=== PATIENT | male | born 1970 | race Caucasian/White ===

== ENCOUNTER 2019-02-03 08:41 | Emergency (ER) | payer BC, SELFPAY ==
[2019-02-03] MEDS ORDERED: ASPIRIN EC 81 MG TAB PO ONE (09:20)
[2019-02-03] MEDS ORDERED: MAGNE/ALUM HYDROXD 30 ML UCUP ONE (09:20)
[2019-02-03] MEDS ORDERED: LIDOCAINE VISCOUS 2% SOLN 15 ML UDC ONE (09:20)
[2019-02-03 09:31] LABS: Absolute Lymphocytes (CBC) 0.7 K/uL (0.7-4.9); Absolute Monocytes 1.2 K/uL (0.1-1.3); Absolute Neutrophil 7.1 K/uL (1.8-8.0); Basophils % 0.2 % (0-1.3); Hematocrit 46.3 % (39.6-49.0); Lymphocytes % 7.6 % (15.3-44.8); MPV 7.8 fL (7.6-11.3); Monocytes % 13.6 % (3.3-12.3); RBC Red Blood Cell Count 5.42 M/uL (4.33-5.43)
[2019-02-03 09:42] LABS: Protime INR 1.04
[2019-02-03 09:53] LABS: ALT/SGPT 22 U/L (12-78); AST/SGOT 12 U/L (15-37); Albumin 3.9 g/dL (3.4-5.0); Alkaline Phosphatase 94 U/L (45-117); BUN Blood Urea Nitrogen 19 mg/dL (7-18); Bicarbonate 29 mmol/L (21-32); Bilirubin Direct 0.3 mg/dL (0-0.2); Bilirubin Total 1.1 mg/dL (0.2-1.0); Glucose Level 115 mg/dL (74-106); Magnesium 1.9 mg/dL (1.8-2.4); NT PRO-BNP 48 pg/mL (<125); Potassium 3.7 mmol/L (3.5-5.1); Protein, Total 7.3 g/dL (6.4-8.2); Sodium Level 134 mmol/L (136-145); Troponin (Emerg Dept Use Only) < 0.02 ng/mL (0.0-0.045)
--- NOTE | 2019-02-03 11:31 | RAD REPORT ---
EXAM DESCRIPTION: RAD - Chest Single View - 02/03/2019 9:56 am CLINICAL HISTORY: PAIN Chest pain. COMPARISON: No comparisons FINDINGS: Portable technique limits examination quality. The lungs are grossly clear. The heart is normal in size. No displaced fractures. IMPRESSION: No acute intrathoracic process suspected.
--- NOTE | 2019-02-03 12:29 | RAD REPORT ---
EXAM DESCRIPTION: CT - Abdomen Pelvis W Contrast - 02/03/2019 12:09 pm CLINICAL HISTORY: Abdominal pain, diarrhea and nausea COMPARISON: None. TECHNIQUE: Biphasic, helical CT imaging of the abdomen and pelvis was performed following 100 ml non -ionic IV contrast. Oral contrast was given. All CT scans are performed using dose optimization technique as appropriate and may include automated exposure control or mA/KV adjustment according to patient size. FINDINGS: No suspicious findings in the lung bases. The liver, spleen, and pancreas show no suspicious findings. Liver is borderline fatty infiltrated. N o gallbladder or biliary tree abnormality. Renal function is symmetric and without evidence for delay. There is minimal dilatation of the right collecting system relative to the left. The patient has a 10 millimeter oval calcification at the rig ht UVJ, possibly within a ureterocele. There are no comparison studies available. No pyelonephritis o r acute parenchymal process. Urinary bladder is contracted. Prostate gland and seminal vesicles withi n normal limits. No adrenal abnormalities. No gastric dilatation or gastric wall thickening. Oral contrast has reached the cecum. No appendiciti s findings. Multiple distended small bowel loops are present with intermittent areas of small bowel w all thickening. Spears of the left side colon are mildly prominent without dilatation or mass. No free air, free fluid or inflammatory stranding. No hernia, mass or bulky lymphadenopathy. Mult iple small mesenteric lymph nodes are present. No suspicious bony findings. IMPRESSION: Prominent small bowel infectious or inflammatory enteritis pattern with multiple small m esenteric lymph nodes. No small bowel obstruction. Oral CT contrast has reached the cecum. Minimal prominence of the left-side colon spears without focal mass. This may be a concurrent colitis. Patient has a 10 millimeter calcification at the right UVJ possibly within a ureterocele. There is mi ld dilatation of the right collecting system but no delayed or asymmetric function.
[2019-02-03] MEDS ORDERED: PROMETHAZINE 25 MG/ML VIAL ONE (12:41)
[2019-02-03] MEDS ORDERED: FENTANYL CITR 100 MCG/2 ML ONE (12:42)
[2019-02-03] MEDS ORDERED: levoFLOXacin 500 MG TAB ONE (13:46)
[2019-02-03] MEDS ORDERED: ONDANSETRON 4 MG (ODT) TAB ONE (13:46)
--- NOTE | 2019-02-03 14:14 | EDPHYS ---
Physician Documentation [facility] Name: Sudhakar Johnston Age: 48 yrs Sex: Male : 1970 Arrival Date: 02/03/2019 Time: 08:43 Bed 15 Private MD: ED Physician Edgar Steve HPI: 02/03 09:11 This 48 yrs old Male presents to ER via Unassigned with complaints of snw Epigastric Pain, Nausea. 09:11 The patient presents with abdominal pain in the epigastric area, in the upper abdomen. snw Onset: The symptoms/episode began/occurred suddenly, 4 day(s) ago, and became persistent. Historical: - Allergies: 08:49 Keflex; rb1 08:49 PENICILLINS; rb1 08:49 Sulfa (Sulfonamide Antibiotics); rb1 - Home Meds: 08:49 amlodipine 10 mg tab 1 tab once daily [Active]; metoprolol succinate 50 mg oral Tb24 1 rb1 tab 2 times a day [Active]; - PMHx: 08:49 Hypertension; rb1 - PSHx: 08:49 None; rb1 - Immunization history:: Adult Immunizations up to date. - Social history:: Smoking status: Patient uses tobacco products, denies chronic smoking, but will smoke occasionally, cigars. - Ebola Screening: : Patient negative for fever greater than or equal to 101.5 degrees Fahrenheit, and additional compatible Ebola Virus Disease symptoms. ROS: 09:06 Constitutional: Negative for fever, chills, and weight loss, Eyes: Negative for injury, snw pain, redness, and discharge, ENT: Negative for injury, pain, and discharge, Neck: Negative for injury, pain, and swelling, Respiratory: Negative for shortness of breath, cough, wheezing, and pleuritic chest pain, Back: Negative for injury and pain, : Negative for injury, bleeding, discharge, and swelling, MS/Extremity: Negative for injury and deformity, Skin: Negative for injury, rash, and discoloration, Neuro: Negative for headache, weakness, numbness, tingling, and seizure, Psych: Negative for depression, anxiety, suicide ideation, homicidal ideation, and hallucinations. 09:06 Cardiovascular: Positive for chest pain, of the xyphoid area. 09:06 Abdomen/GI: Positive for abdominal pain, nausea, diarrhea. Exam: 09:06 Constitutional: This is a well developed, well nourished patient who is awake, alert, snw and in no acute distress. Head/Face: Normocephalic, atraumatic. Eyes: Pupils equal round and reactive to light, extra-ocular motions intact. Lids and lashes normal. Conjunctiva and sclera are non-icteric and not injected. Cornea within normal limits. Periorbital areas with no swelling, redness, or edema. ENT: Nares patent. No nasal discharge, no septal abnormalities noted. Tympanic membranes are normal and external auditory canals are clear. Oropharynx with no redness, swelling, or masses, exudates, or evidence of obstruction, uvula midline. Mucous membranes moist. Neck: Trachea midline, no thyromegaly or masses palpated, and no cervical lymphadenopathy. Supple, full range of motion without nuchal rigidity, or vertebral point tenderness. No Meningismus. Chest/axilla: Normal chest wall appearance and motion. Nontender with no deformity. No lesions are appreciated. Cardiovascular: Regular rate and rhythm with a normal S1 and S2. No gallops, murmurs, or rubs. Normal PMI, no JVD. No pulse deficits. Respiratory: Lungs have equal breath sounds bilaterally, clear to auscultation and percussion. No rales, rhonchi or wheezes noted. No increased work of breathing, no retractions or nasal flaring. Abdomen/GI: Soft, non-tender, with normal bowel sounds. No distension or tympany. No guarding or rebound. No evidence of tenderness throughout. Back: No spinal tenderness. No costovertebral tenderness. Full range of motion. Skin: Warm, dry with normal turgor. Normal color with no rashes, no lesions, and no evidence of cellulitis. MS/ Extremity: Pulses equal, no cyanosis. Neurovascular intact. Full, normal range of motion. Neuro: Awake and alert, GCS 15, oriented to person, place, time, and situation. Cranial nerves II-XII grossly intact. Motor strength 5/5 in all extremities. Sensory grossly intact. Cerebellar exam normal. Normal gait. Psych: Awake, alert, with orientation to person, place and time. Behavior, mood, and affect are within normal limits. 09:15 ECG was reviewed by the Attending Physician. snw Vital Signs: 08:49 BP 136 / 94; Pulse 85; Resp 19; Temp 98.5(O); Pulse Ox 99% on R/A; Weight 81.19 kg (R); rb1 Height 5 ft. 9 in. (175.26 cm) (R); Pain 4/10; 09:49 BP 124 / 87; Pulse 86; Resp 18; Pulse Ox 99% on R/A; rb1 10:37 BP 140 / 93; Pulse 84; Resp 20; Pulse Ox 100% on R/A; Pain 4/10; rb1 11:30 BP 125 / 83; Pulse 83; Resp 16; Pulse Ox 97% on R/A; Pain 3/10; rb1 12:30 BP 136 / 86; Pulse 96; Resp 14; Pulse Ox 98% on R/A; rb1 13:30 BP 128 / 81; Pulse 91; Resp 13; Pulse Ox 98% ; rb1 14:30 BP 132 / 84; Pulse 88; Resp 16; Pulse Ox 100% on R/A; rb1 08:49 Body Mass Index 26.43 (81.19 kg, 175.26 cm) rb1 MDM: 08:56 Patient medically screened. jennifer 14:15 Data reviewed: vital signs, nurses notes. Data interpreted: Pulse oximetry: on room air snw is 98 %. Interpretation: normal. Counseling: I had a detailed discussion with the patient and/or guardian regarding: the historical points, exam findings, and any diagnostic results supporting the discharge/admit diagnosis, the presence of at least one elevated blood pressure reading (>120/80) during this emergency department visit, lab results, radiology results, the need for outpatient follow up, to return to the emergency department if symptoms worsen or persist or if there are any questions or concerns that arise at home. Special discussion: Based on the patient's Hx, exam, and Dx evaluation, there is no indication for emergent surgery or inpatient Tx. It is understood by the patient/guardian that if the Sx's persist or worsen they need to return immediately for re-evaluation. I have referred the patient to see his PCP for further evaluation of high blood pressure. Based on the history and exam findings, there is no indication for further emergent testing or inpatient evaluation. I discussed with the patient/guardian the need to see the skip pit worker for further evaluation of the symptoms. I discussed with the patient/guardian the need to see the primary care provider for further evaluation of the symptoms. 02/03 09:02 Order name: Basic Metabolic Panel snw 02/03 09:02 Order name: CBC with Diff; Complete Time: 09:43 snw 02/03 09:02 Order name: LFT's; Complete Time: 09:53 snw 02/03 09:02 Order name: Magnesium; Complete Time: 09:53 snw 02/03 09:02 Order name: NT PRO-BNP; Complete Time: 09:53 snw 02/03 09:02 Order name: PT-INR; Complete Time: 09:48 snw 02/03 09:02 Order name: Troponin (emerg Dept Use Only); Complete Time: 09:53 snw 02/03 09:02 Order name: XRAY Chest (1 view); Complete Time: 11:37 snw 02/03 09:02 Order name: Basic Metabolic Panel; Complete Time: 09:53 EDMS 02/03 09:54 Order name: CT Abd/Pelvis - W/Contrast; Complete Time: 12:47 snw 02/03 11:48 Order name: Troponin (emerg Dept Use Only): at 1215; Complete Time: 13:23 snw 02/03 09:02 Order name: EKG; Complete Time: 09:03 snw 02/03 09:02 Order name: Cardiac monitoring; Complete Time: 09:26 snw 02/03 09:02 Order name: EKG - Nurse/Tech; Complete Time: 09:27 snw 02/03 09:02 Order name: IV Saline Lock; Complete Time: 09:26 snw 02/03 09:02 Order name: Labs collected and sent; Complete Time: 09:26 snw 02/03 09:02 Order name: O2 Per Protocol; Complete Time: 09:26 snw 02/03 09:02 Order name: O2 Sat Monitoring; Complete Time: 09:26 snw 02/03 11:48 Order name: EKG - Nurse/Tech: at 12:15; Complete Time: 12:44 snw Administered Medications: 09:05 Drug: Aspirin 81 mg Route: PO; rb1 09:35 Follow up: Response: No adverse reaction rb1 09:05 Drug: GI Cocktail without - (Maalox Suspension 30 ml, Lidocaine Liquid 2 % 15 rb1 ml) Route: PO; 09:35 Follow up: Response: No adverse reaction; No change in condition rb1 12:42 Not Given (Patient Refused): fentaNYL (PF) 25 mcg IVP once rb1 12:42 Not Given (Patient Refused): Phenergan 6.25 mg IVP once rb1 13:39 Drug: LevaQUIN 500 mg Route: PO; rb1 13:39 Drug: Zofran 4 mg Route: PO; rb1 Disposition: 02/04 08:22 Co-signature as Attending Physician, Edgar Steve MD I agree with the assessment and jennifer plan of care. Disposition: 02/03/19 14:13 Discharged to Home. Impression: Unspecified colitis, Fatty (change of) liver, not elsewhere classified. - Condition is Stable. - Discharge Instructions: Colitis, Nonalcoholic Fatty Liver Disease Diet. - Prescriptions for Levaquin 500 mg Oral Tablet - take 1 tablet by ORAL route once daily for 7 days; 7 tablet. Zofran 4 mg Oral Tablet - take 1 tablet by ORAL route every 6 hours As needed; 20 tablet. - Work release form, Medication Reconciliation Form, Thank You Letter, Antibiotic Education, Prescription Opioid Use form. - Follow up: Private Physician; When: 2 - 3 days; Reason: Recheck today's complaints, Continuance of care, Re-evaluation by your physician. Follow up: Emergency Department; When: As needed; Reason: Worsening of condition. Signatures: Dispatcher [employer] Edgar Alamo MD MD cha Therrien, Shelly, SOUND ENGINEER-C SOUND ENGINEER-Csnw Navin Michaels, CUPOLA HOIST OPERATOR CUPOLA HOIST OPERATOR Zulema Ward, RN RN rb1 Corrections: (The following items were deleted from the chart) 02/03 14:45 14:13 02/03/2019 14:13 Discharged to Home. Impression: Unspecified colitis; Fatty em (change of) liver, not elsewhere classified. Condition is Stable. Forms are Medication Reconciliation Form, Thank You Letter, Antibiotic Education, Prescription Opioid Use. Follow up: Private Physician; When: 2 - 3 days; Reason: Recheck today's complaints, Continuance of care, Re-evaluation by your physician. Follow up: Emergency Department; When: As needed; Reason: Worsening of condition. snw
--- NOTE | 2019-02-03 14:14 | ER ---
Nurse's Notes [facility] Name: Sudhakar Johnston Age: 48 yrs Sex: Male : 1970 Arrival Date: 02/03/2019 Time: 08:43 Bed 15 Private MD: Diagnosis: Unspecified colitis;Fatty (change of) liver, not elsewhere classified Presentation: 02/03 08:49 Presenting complaint: Patient states: I have been feeling bloated and indigestion since rb1 . I have had diarrhea and nausea, but have not actually vomited. Transition of care: patient was not received from another setting of care. Onset of symptoms was January 31, 2019. Risk Assessment: Do you want to hurt yourself or someone else? Patient reports no desire to harm self or others. Initial Sepsis Screen: Does the patient meet any 2 criteria? No. Patient's initial sepsis screen is negative. Does the patient have a suspected source of infection? No. Patient's initial sepsis screen is negative. Care prior to arrival: None. 08:49 Method Of Arrival: Ambulatory rb1 08:49 Acuity: OG 3 rb1 Triage Assessment: 08:49 General: Appears in no apparent distress. comfortable, Behavior is calm, cooperative. rb1 Pain: Complains of pain in epigastric area Pain currently is 4 out of 10 on a pain scale. Pain began . Neuro: Level of Consciousness is awake, alert, obeys commands, Oriented to person, place, time, situation. Cardiovascular: Capillary refill < 3 seconds is brisk in bilateral fingers. Respiratory: Airway is patent Respiratory effort is even, unlabored, Respiratory pattern is regular, symmetrical. GI: Reports diarrhea, nausea. : No signs and/or symptoms were reported regarding the genitourinary system. Derm: Skin is pink, warm \T\ dry. Musculoskeletal: Range of motion: intact in all extremities. Historical: - Allergies: 08:49 Keflex; rb1 08:49 PENICILLINS; rb1 08:49 Sulfa (Sulfonamide Antibiotics); rb1 - Home Meds: 08:49 amlodipine 10 mg tab 1 tab once daily [Active]; metoprolol succinate 50 mg oral Tb24 1 rb1 tab 2 times a day [Active]; - PMHx: 08:49 Hypertension; rb1 - PSHx: 08:49 None; rb1 - Immunization history:: Adult Immunizations up to date. - Social history:: Smoking status: Patient uses tobacco products, denies chronic smoking, but will smoke occasionally, cigars. - Ebola Screening: : Patient negative for fever greater than or equal to 101.5 degrees Fahrenheit, and additional compatible Ebola Virus Disease symptoms. Screenin:49 Abuse screen: Denies threats or abuse. Nutritional screening: No deficits noted. rb1 Tuberculosis screening: No symptoms or risk factors identified. Fall Risk None identified. Assessment: 08:49 General: See triage assessment. rb1 09:49 Reassessment: Patient appears in no apparent distress at this time. Patient and/or rb1 family updated on plan of care and expected duration. Pain level reassessed. Patient is alert, oriented x 3, equal unlabored respirations, skin warm/dry/pink. 10:28 Reassessment: Spoke to Helene in [place] and informed her that the pt. finished his contrast. rb1 10:49 Reassessment: Patient appears in no apparent distress at this time. No changes from rb1 previously documented assessment. 11:44 Reassessment: Patient appears in no apparent distress at this time. Patient and/or rb1 family updated on plan of care and expected duration. Pain level reassessed. Patient is alert, oriented x 3, equal unlabored respirations, skin warm/dry/pink. 12:42 Reassessment: Pt. refused the Fentanyl and Phenergan; provider notified. rb1 12:42 Reassessment: Patient appears in no apparent distress at this time. Patient and/or rb1 family updated on plan of care and expected duration. Pain level reassessed. Patient is alert, oriented x 3, equal unlabored respirations, skin warm/dry/pink. 13:40 Reassessment: Patient appears in no apparent distress at this time. No changes from rb1 previously documented assessment. Family at bedside. 14:30 Reassessment: Patient appears in no apparent distress at this time. Patient and/or rb1 family updated on plan of care and expected duration. Pain level reassessed. Patient is alert, oriented x 3, equal unlabored respirations, skin warm/dry/pink. Vital Signs: 08:49 BP 136 / 94; Pulse 85; Resp 19; Temp 98.5(O); Pulse Ox 99% on R/A; Weight 81.19 kg (R); rb1 Height 5 ft. 9 in. (175.26 cm) (R); Pain 4/10; 09:49 BP 124 / 87; Pulse 86; Resp 18; Pulse Ox 99% on R/A; rb1 10:37 BP 140 / 93; Pulse 84; Resp 20; Pulse Ox 100% on R/A; Pain 4/10; rb1 11:30 BP 125 / 83; Pulse 83; Resp 16; Pulse Ox 97% on R/A; Pain 3/10; rb1 12:30 BP 136 / 86; Pulse 96; Resp 14; Pulse Ox 98% on R/A; rb1 13:30 BP 128 / 81; Pulse 91; Resp 13; Pulse Ox 98% ; rb1 14:30 BP 132 / 84; Pulse 88; Resp 16; Pulse Ox 100% on R/A; rb1 08:49 Body Mass Index 26.43 (81.19 kg, 175.26 cm) rb1 ED Course: 08:43 Patient arrived in ED. as 08:49 Zulema James, RN is Primary Nurse. rb1 08:49 Arm band placed on left wrist. rb1 08:49 Patient has correct armband on for positive identification. Bed in low position. Call rb1 light in reach. Side rails up X 1. Placed in gown. Pulse ox on. NIBP on. 08:53 Macey Ridley [facility]-C [facility]. la1 08:53 Edgar Steve MD is Attending Physician. la1 09:18 Inserted saline lock: 22 gauge in right antecubital area, using aseptic technique. rb1 Blood collected. 09:46 Triage completed. rb1 09:56 XRAY Chest (1 view) In Process Unspecified. EDMS 12:08 CT completed. Patient tolerated procedure well. Patient moved back from CT. mw3 12:10 CT Abd/Pelvis - W/Contrast In Process Unspecified. EDMS 12:44 EKG done, by ED staff, reviewed by Macey GARCIA. jp3 14:45 No provider procedures requiring assistance completed. IV discontinued, intact, rb1 bleeding controlled, No redness/swelling at site. Pressure dressing applied. Administered Medications: 09:05 Drug: Aspirin 81 mg Route: PO; rb1 09:35 Follow up: Response: No adverse reaction rb1 09:05 Drug: GI Cocktail without - (Maalox Suspension 30 ml, Lidocaine Liquid 2 % 15 rb1 ml) Route: PO; 09:35 Follow up: Response: No adverse reaction; No change in condition rb1 12:42 Not Given (Patient Refused): fentaNYL (PF) 25 mcg IVP once rb1 12:42 Not Given (Patient Refused): Phenergan 6.25 mg IVP once rb1 13:39 Drug: LevaQUIN 500 mg Route: PO; rb1 13:39 Drug: Zofran 4 mg Route: PO; rb1 Outcome: 14:13 Discharge ordered by MD. nielsen 14:45 Patient left the ED. em 14:45 Discharged to home ambulatory. rb1 14:45 Condition: stable 14:45 Discharge instructions given to patient, Instructed on discharge instructions, follow up and referral plans. medication usage, Demonstrated understanding of instructions, follow-up care, medications, Prescriptions given X 2. Signatures: Dispatcher [employer] EDMacey Wyatt, AUTO CLUTCH SPECIALIST-C AUTO CLUTCH SPECIALIST-Csnw Navin Michaels, WINDOW GLAZIER HELPER WINDOW GLAZIER HELPER Vivian Galicia Lee RN RN la1 Zulema James RN RN rb1 Hermila Salas mw3 Salo Albrecht 3
--- NOTE | 2019-02-05 11:37 | EKG ---
Test Date: 2019-02-03 Test Time: 12:36:29 Visitor Services Information Assistant: SYDNEY MEASUREMENT RESULTS: Intervals: Rate: 85 AL: 162 QRSD: 82 QT: 358 QTc: 426 [place]: P: 56 AL: 162 QRS: 41 T: 36 INTERPRETIVE STATEMENTS: Normal sinus rhythm Normal ECG Compared to ECG 02/03/2019 09:18:26 T-wave abnormality no longer present Electronically Signed On 02-04-19 10:51:47 CDT by King Lizama
--- NOTE | 2019-02-05 11:38 | EKG ---
Test Date: 2019-02-03 Test Time: 09:18:26 Silver Chaser: FRITZ MEASUREMENT RESULTS: Intervals: Rate: 80 [place]: 164 QRSD: 86 QT: 368 QTc: 424 [place]: P: 62 [place]: 164 QRS: 52 T: 68 INTERPRETIVE STATEMENTS: Normal sinus rhythm Nonspecific T wave abnormality Abnormal ECG No previous ECG available for comparison Electronically Signed On 02-04-19 10:52:39 CDT by King Lizama
== END 2019-02-03 14:45 | disposition home or self-care (01) ==
LOC: ER 08:41
DX: K52.9 Noninfective gastroenteritis and colitis, unspecified (principal); K76.0 Fatty (change of) liver, not elsewhere classified; I10 Essential (primary) hypertension; Z72.0 Tobacco use; Z88.0 Allergy status to penicillin; Z88.1 Allergy status to other antibiotic agents; Z88.2 Allergy status to sulfonamides
CPT/HCPCS: 36415; 71045; 74177; 80048; 80076; 83735; 83880; 84484; 85025; 85610; 93005; 99285; J2550; J3010; Q9967